=== PATIENT | male | born 2000 | race American Indian/Alaskan Native ===

== ENCOUNTER 2019-08-10 20:04 | Emergency (ER) | payer SELFPAY ==
[2019-08-10 20:20] VITALS: BP 138/79
--- NOTE | 2019-08-10 20:56 | Emergency Department Report ---
Chief Complaint: Upper Respiratory Infection Stated Complaint: ABD PAIN, BODY PAIN, N/V Time Seen by Provider: 08/10/19 20:49 - HPI History of Present Illness: 19 y/o male comes in for N/V cough and low grade fever times 3 days. Admits to loose stool. Taken Cold and Flu medications. Patient has been able to drink cranberry juice. - Exam Vital Signs: Vital Signs 08/10/19 20:19 Temperature 99.1 F Pulse Rate 95 H Respiratory 18 Rate Blood Pressure 138/79 O2 Sat by Pulse 99 Oximetry Physical Exam: AxO times 3 NAD non toxic Chest CTAB Cardiac: RRR on murmurs Ambulatory MSE screening note: Focused history and physical exam performed. Due to findings the following was ordered: 19 y/o male comes in for N/V cough and low grade fever times 3 days. Admits to loose stool. Taken Cold and Flu medications. Patient has been able to drink cranberry juice. Recommend increase fluid intact. Ibuprofen for backaches and fever. Take yg tea for nausea and vomiting. Follow up with your Primary Care provider. ED Disposition for MSE Disposition: Z- MED SCREENING EXAM-LEFT Is pt being admited?: No Does the pt Need Aspirin: No Condition: Stable Additional Instructions: Recommend increase fluid intact. Ibuprofen for backaches and fever. Take yg tea for nausea and vomiting. Follow up with your Primary Care provider. Forms: Work/School Release Form(ED)
== END 2019-08-10 21:14 | disposition left against medical advice (07) ==
LOC: ED 20:04
DX: R05 Cough (principal); R50.9 Fever, unspecified
CPT/HCPCS: 99282

== ENCOUNTER 2021-07-19 20:33 | Emergency (ER) | payer SELFPAY ==
[2021-07-19 21:54] VITALS: BP 160/108
--- NOTE | 2021-07-19 22:05 | Event Note ---
i went to evaluate pt shortly after triage and was informed by triage nurse pt has left the department.
== END 2021-07-20 08:24 | disposition left against medical advice (07) ==
LOC: ED 20:33
DX: M54.50 Low back pain, unspecified (principal); Z53.21 Procedure and treatment not carried out due to patient leaving prior to being seen by health care provider